=== PATIENT | female | born 1965 | race Caucasian/White ===

== ENCOUNTER 2019-04-16 10:53 | Observation (INO) ==
[2019-04-16] MEDS ORDERED: methylPREDNISolone SOD SUC 125 MG/2 ML VIAL IV STA (11:41)
[2019-04-16] MEDS ORDERED: diphenhydrAMINE 50 MG/1 ML VIAL IV STA (11:41)
[2019-04-16] MEDS ORDERED: FAMOTIDINE 20 MG/2 ML VIAL IV STA (11:41)
[2019-04-16] MEDS ORDERED: SODIUM CHLORIDE 0.9% 1,000 ML IV STA (11:43)
[2019-04-16 11:50] LABS: Basophils % 0.4 % (0.0-0.8); Eosinophils # 0.5 10*3/uL (0.0-0.87); Eosinophils % 5.5 % (0.00-10.9); Hematocrit 41.4 VOL% (35.7-47.0); Hemoglobin 13.3 GM/DL (12.0-16.0); Immature Granulocytes % 0.7 %; Immature Granulocytes Absolute 0.07 #; Lymphocytes # 2.2 10*3/uL (1.4-4.0); Lymphocytes % 22.4 % (21.3-54.2); Mean Corpuscular HGB Conc 32.1 GM/DL (32-36); Mean Corpuscular Volume 88.7 FL (87-102); Monocytes % 4.7 % (1.7-12.7); Neutrophils % 66.3 % (38.7-73.9); Platelet Count 262 T/CUMM (130-400); Red Blood Count 4.67 MC/CUMM (3.8-5.5); Red Cell Distribution Width 14.6 % (9.3-17.3); White Blood Count 9.9 T/CUMM (4-12)
[2019-04-16] MEDS: ALBUTEROL 2.5 MG/3 ML NEB RESP TX SCH ×3 (11:58→12:38)
[2019-04-16 12:09] LABS: Albumin 3.6 G/DL (3.4-5.0); Bilirubin,Total 0.5 MG/DL (0.2-1.0); Calcium 8.5 MG/DL (8.5-10.1); Osmolality,Calculated 290.1 MOS/KG (273-304)
[2019-04-16] MEDS ORDERED: ONDANSETRON ODT 4 MG TABLET PO PRN (13:50)
[2019-04-16] MEDS ORDERED: ACETAMINOPHEN 325 MG TABLET PO PRN (13:52)
[2019-04-16] MEDS ORDERED: MAGNESIUM SULF RIDER 2 GM in PREMIX 1 EACH IV PRN (13:52)
[2019-04-16] MEDS ORDERED: MAGNESIUM SULF RIDER 4 GM in PREMIX 1 EACH IV PRN (13:52)
[2019-04-16] MEDS ORDERED: hydrOXYzine HCL 10 MG TABLET PO PRN (13:55)
[2019-04-16] MEDS: SODIUM CHLORIDE 0.9% 1,000 ML IV SCH (15:58)
[2019-04-16] MEDS: FAMOTIDINE 20 MG/2 ML VIAL IV SCH ×2 (17:40→23:48)
[2019-04-16] MEDS: methylPREDNISolone SOD SUC 40 MG/1 ML VIAL IV SCH ×2 (17:43→23:51)
[2019-04-16] MEDS: POTASSIUM CHLORIDE RIDER 10 MEQ in PREMIX 1 EACH IV PRN ×2 (17:57→20:25)
[2019-04-16] MEDS ORDERED: diphenhydrAMINE 50 MG/1 ML VIAL IV SCH (18:00)
[2019-04-16 18:41] LABS: Apearance,Urine CLEAR (Clear); Bilirubin,Urine Negative (Negative); Blood, Urine Negative (Negative); Glucose,Urine (UA) Negative (Negative); Ketones,Urine Negative (Negative); Mucus,Urine Occasional /LPF (Occasional); Nitrite,Urine Negative (Negative); Protein,Urine Negative; RBC,Urine 2 /HPF (0-4); Squamous Epithelial Cell,Urine Occasional /HPF (0-10); Urine Color Straw (Yellow); Urine Specific Gravity 1.011 (1.001-1.035); Urine Urobilinogen < 2.0 EU/DL (0.2-1.0); WBC,Urine 1 /HPF (0-6)
[2019-04-16] MEDS: ALBUTEROL/IPRATROPIUM 3 ML NEB RESP TX SCH (19:22)
[2019-04-16] MEDS: TOPIRAMATE 25 MG TABLET PO SCH (20:25)
[2019-04-16] MEDS ORDERED: ENOXAPARIN 40 MG/0.4 ML SYRINGE SUBCUT SCH (21:00)
[2019-04-16] MEDS: diphenhydrAMINE 50 MG/1 ML VIAL IV SCH (23:45)
[2019-04-17] MEDS: ALBUTEROL/IPRATROPIUM 3 ML NEB RESP TX SCH ×3 (00:27→13:01)
[2019-04-17] MEDS: SODIUM CHLORIDE 0.9% 1,000 ML IV SCH (03:45)
[2019-04-17] MEDS: BUTALBITAL/ACETAMIN/CAFFEINE 50-325-40 MG TABLET PO PRN ×2 (04:20→13:38)
[2019-04-17 05:45] LABS: Basophils % 0.1 % (0.0-0.8); Hematocrit 37.8 VOL% (35.7-47.0); Hemoglobin 11.8 GM/DL (12.0-16.0); Immature Granulocytes % 0.9 %; Immature Granulocytes Absolute 0.08 #; Lymphocytes # 0.3 10*3/uL (1.4-4.0); Lymphocytes % 3.2 % (21.3-54.2); Mean Corpuscular HGB Conc 31.2 GM/DL (32-36); Mean Corpuscular Volume 90.6 FL (87-102); Mean Platelet Volume 8.6 FL (9.6-12.0); Monocytes % 0.7 % (1.7-12.7); Neutrophils % 95.1 % (38.7-73.9); Platelet Count 208 T/CUMM (130-400); Red Blood Count 4.17 MC/CUMM (3.8-5.5); Red Cell Distribution Width 14.6 % (9.3-17.3); White Blood Count 8.7 T/CUMM (4-12)
[2019-04-17] MEDS: diphenhydrAMINE 50 MG/1 ML VIAL IV SCH ×2 (06:05→13:33)
[2019-04-17] MEDS: FAMOTIDINE 20 MG/2 ML VIAL IV SCH ×2 (06:08→14:12)
[2019-04-17 06:09] LABS: Alanine Aminotransferase 16 U/L (13-56); Albumin 3.3 G/DL (3.4-5.0); Alkaline Phosphatase 55 U/L (45-117); Aspartate Amino Transferase 7 U/L (0-37); Bilirubin,Total < 0.39 MG/DL (0.2-1.0); Blood Urea Nitrogen 18 MG/DL (7-18); Calcium 7.8 MG/DL (8.5-10.1); Estimated Glom Filtration Rate 88 ML/MIN; Glucose 318 MG/DL (74-106); Osmolality,Calculated 299.8 MOS/KG (273-304); Total Protein 5.7 G/DL (6.4-8.3)
[2019-04-17] MEDS: methylPREDNISolone SOD SUC 40 MG/1 ML VIAL IV SCH ×2 (06:10→14:11)
[2019-04-17 06:35] LABS: Platelet Estimate Decreased; Polychromasia Few; Segmented Neutrophils 99 % (50-85); Total Cells Counted 100
[2019-04-17 08:41] VITALS: BP 108/57
[2019-04-17] MEDS: TOPIRAMATE 25 MG TABLET PO SCH (08:52)
[2019-04-17 12:18] LABS: Risk Ratio 1.3; VLDL CHOLESTEROL 8.6 MG/DL
== END 2019-04-17 15:16 | disposition home or self-care (01) ==
LOC: N.ED 10:53 → N.EDINP 10:53 → N.2W 14:29
PROVIDERS: ADMIT Internal Medicine; ATTEND Internal Medicine